=== PATIENT | male | born 1985 | race Caucasian/White ===

== ENCOUNTER 2022-07-05 09:13 | Day surgery (SDC) | payer OTHER ==
[~2022-07-05] VITALS: Ht 188 cm; Wt 104.3 kg
[~2022-07-05 09:13] MED LIST: DOCUSATE SODIU100 MG PO; FAMOTIDINE20 M3 PO; LIPITOR20 M1 PO; MELOXICAM15 MG PO; PROTONIX40 M2 PO
[2022-07-05] MEDS ORDERED: KETOROLAC10 MG PO (12:30)
[2022-07-05 14:23] VITALS: BP 108/79
== END 2022-07-05 14:05 | DRG 355 ==
LOC: ORM 09:13
PROVIDERS: ATTEND Surgery
PROC: 0WUF0JZ Supplement Abdominal Wall with Synthetic Substitute, Open Approach (ICD-10-PCS; principal; 2022-07-05)
DX: K43.2 Incisional hernia without obstruction or gangrene (principal)
CPT/HCPCS: C9290; J0131